=== PATIENT | male | born 1960 | race Caucasian/White ===

== ENCOUNTER 2017-06-04 00:23 | Emergency (ER) | payer MEDICARE ==
[2017-06-04 01:44] LABS: APPEARANCE,URINE CLEAR; BILIRUBIN,URINE NEGATIVE (NEGATIVE); GLUCOSE, URINE NEGATIVE (NEGATIVE); KETONES,URINE NEGATIVE (NEGATIVE); LEUKOCYTE ESTERASE,URINE NEGATIVE (NEGATIVE); NITRITE,URINE NEGATIVE (NEGATIVE); PROTEIN,URINE NEGATIVE (NEGATIVE); URINE SPECIFIC GRAVITY 1.009; UROBILINOGEN,URINE NEGATIVE mg/dL (<2.0)
[2017-06-04 01:45] LABS: ABSOLUTE BASOPHILS # (AUTO) 0.1 10^3/uL (0.0-0.2); ABSOLUTE EOSINOPHILS # (AUTO) 0.2 10^3/uL (0.0-0.6); ABSOLUTE LYMPHOCYTES (AUTO) 1.6 10^3/uL (0.5-4.7); ABSOLUTE MONOCYTES (AUTO) 0.7 10^3/uL (0.1-1.4); ABSOLUTE NEUT (AUTO) 9.6 10^3/uL (1.7-8.2); BASOPHILS % (AUTO) 0.5 % (0-2); EOSINOPHILS % (AUTO) 1.6 % (0-6); HEMATOCRIT 38.8 % (37.9-51.0); HEMOGLOBIN 13.7 g/dL (13.5-17.0); HGB HCT DIFFERENCE 2.3; LYMPHOCYTES % (AUTO) 13.5 % (13-45); MEAN CORPUSCULAR HEMOGLOBIN 32.1 pg (27.0-33.4); MEAN CORPUSCULAR HGB CONC 35.3 g/dL (32.0-36.0); MEAN CORPUSCULAR VOLUME 91 fl (80-97); MONOCYTES % (AUTO) 5.5 % (3-13); RED BLOOD COUNT 4.27 10^6/uL (4.35-5.55); RED CELL DISTRIBUTION WIDTH 14.2 % (11.5-14.0); SEGMENTED NEUTROPHILS % (AUTO) 78.9 % (42-78); WHITE BLOOD COUNT 12.1 10^3/uL (4.0-10.5)
[2017-06-04] MEDS ORDERED: LORAZEPAM 1 MG TABLET PO ONE (01:50)
--- NOTE | 2017-06-04 01:50 | ER Document Report ---
ED Psych Disorder / Suicide - General Mode of Arrival: Ambulatory Information source: Patient TRAVEL OUTSIDE OF THE [place] IN LAST 30 DAYS: No <VERONICA XIONG - Last Filed: 06/04/17 03:34> <NATE PAEZ - Last Filed: 06/04/17 05:47> - General Chief Complaint: Psych Problem Stated Complaint: CHEST PAIN Time Seen by Provider: 06/04/17 01:24 Notes: Patient is a 57 year old male that presents today complaining of "a heart attack two months ago with a x3-4 day coma". Patient then mentions that he needs "someone who believes in God". Patient keeps reporting that he "needs to speak with a child adolescent care". History is limited. (VERONICA XIONG) - Related Data Allergies/Adverse Reactions: No Known Allergies Allergy (Verified 06/04/17 05:32) Past Medical History - General Information source: [facility] Records - Social History Smoking Status: Unknown if Ever Smoked Cigarette use (# per day): No Frequency of alcohol use: None Drug Abuse: None Lives with: Family Family History: Reviewed & Not Pertinent Patient has suicidal ideation: No Patient has homicidal ideation: No - Past Medical History Cardiac Medical History: Reports: Hx Heart Attack Past Surgical History: Reports: Hx Cardiac Surgery <VERONICA XIONG - Last Filed: 06/04/17 03:34> Review of Systems - Review of Systems -: Yes ROS unobtainable due to patient's medical condition <VERONICA XIONG - Last Filed: 06/04/17 03:34> Physical Exam - Vital signs Interpretation: Normal - General General appearance: Appears well, Alert - HEENT Head: Normocephalic, Atraumatic Eyes: Normal Pupils: PERRL - Respiratory Respiratory status: No respiratory distress Chest status: Nontender Breath sounds: Normal Chest palpation: Normal - Cardiovascular Rhythm: Regular Heart sounds: Normal auscultation Murmur: No - Abdominal Inspection: Normal Distension: No distension Bowel sounds: Normal Tenderness: Nontender Organomegaly: No organomegaly - Back Back: Normal, Nontender - Extremities General upper extremity: Normal inspection, Nontender, Normal color, Normal ROM , Normal temperature General lower extremity: Normal inspection, Nontender, Normal color, Normal ROM , Normal temperature, Normal weight bearing. No: Tahir's sign - Neurological Neuro grossly intact: Yes Cognition: Normal Orientation: AAOx4 [place] Coma Scale Eye Opening: Spontaneous [place] Coma Scale Verbal: Oriented Edis Coma Scale Motor: Obeys Commands Edis Coma Scale Total: 15 Speech: Normal Motor strength normal: LUE, RUE, LLE, RLE Sensory: Normal - Psychological Associated symptoms: Paranoid, Episcopal preoccupation, Restlessness - Skin Skin Temperature: Warm Skin Moisture: Dry Skin Color: Normal <NATE PAEZ - Last Filed: 06/04/17 05:47> - Vital signs Vitals: Temp Pulse Resp BP Pulse Ox 98.4 F 102 H 16 152/91 H 96 06/04/17 00:35 06/04/17 00:35 06/04/17 00:35 06/04/17 00:35 06/04/17 00:35 Course - Laboratory Result Diagrams: 06/04/17 01:26 06/04/17 01:26 <VERONICA XIONG - Last Filed: 06/04/17 03:34> - Laboratory Result Diagrams: 06/04/17 01:26 06/04/17 01:26 <NATE PAEZ - Last Filed: 06/04/17 05:47> - Re-evaluation Re-evalutation: 06/04/17 05:45 Patient is a 57-year-old male who was causing is seen in the waiting room complaining about pain. Patient states that he has not had any pain except chronically in his right arm. No chest pain. Patient informs me that he wants to show me his website about God. Patient states that he needs to talk to someone about God. Otherwise he is medically stable. Patient will be held for mental health evaluation. I am not sure if this is his baseline as there are no old medical records on here. Troponin is negative 2. Patient has a history of renal insufficiency. (NATE PAEZ) - Vital Signs Vital signs: Temp Pulse Resp BP Pulse Ox 98.4 F 102 H 16 152/91 H 99 06/04/17 00:35 06/04/17 00:35 06/04/17 02:18 06/04/17 00:35 06/04/17 03:00 - Laboratory Laboratory results interpreted by me: 06/04/17 06/04/17 01:26 01:26 WBC 12.1 H RBC 4.27 L RDW 14.2 H Seg Neutrophils % 78.9 H Absolute Neutrophils 9.6 H Potassium 3.5 L BUN 47 H Creatinine 2.03 H Est GFR ( Amer) 41 L Est GFR (Non-Af Amer) 34 L Glucose 167 H AST 15 L Creatine Kinase 52 L Discharge <VERONICA XIONG - Last Filed: 06/04/17 03:34> <NATE PAEZ - Last Filed: 06/04/17 05:47> - Discharge Clinical Impression: Episcopal preoccupation, Arm pain, right Chronic renal insufficiency Qualifiers: Chronic kidney disease stage: unspecified stage Qualified Code(s): N18.9 - Chronic kidney disease, unspecified Condition: Stable Disposition: OTHER Scribe Attestation: 06/04/17 05:47 I personally performed the services described in the documentation, reviewed and edited the documentation which was dictated to the scribe in my presence, and it accurately records my words and actions. (NATE PAEZ) Scribe Documentation - Scribe Written by Scribe:: Gail Mcnamara, 06/04/2017 [id number] acting as scribe for :: Tom <VERONICA XIONG - Last Filed: 06/04/17 03:34>
[2017-06-04 01:56] LABS: ALANINE AMINOTRANSFERASE 35 U/L (21-72); ALBUMIN 4.6 g/dL (3.5-5.0); ALKALINE PHOSPHATASE 69 U/L (38-126); ASPARTATE AMINO TRANSFERASE 15 U/L (17-59); BILIRUBIN,DIRECT 0.4 mg/dL (0.0-0.4); BILIRUBIN,TOTAL 0.6 mg/dL (0.2-1.3); BLOOD UREA NITROGEN 47 mg/dL (7-20); CARBON DIOXIDE 22 mmol/L (22-30); CREATINE KINASE 52 U/L (55-170); CREATININE RESULT 2.03 mg/dL (0.52-1.25); GLUCOSE 167 mg/dL (75-110); POTASSIUM 3.5 mmol/L (3.6-5.0); SODIUM 140.8 mmol/L (137-145); TOTAL PROTEIN 7.1 g/dL (6.3-8.2)
[2017-06-04 01:57] LABS: ANION GAP 17 (5-19); CHLORIDE 102 mmol/L (98-107)
[2017-06-04 02:02] LABS: URINE BARBITURATES SCREEN NEGATIVE; URINE METHADONE SCREEN NEGATIVE; URINE OPIATES LOW NEGATIVE; URINE PHENCYCLIDINE SCREEN NEGATIVE
[2017-06-04 02:10] LABS: CREATINE KINASE MB 0.98 ng/mL (<4.55)
[2017-06-04 02:23] LABS: TROPONIN I 0.044 ng/mL
[2017-06-04] MEDS ORDERED: NICOTINE 21 MG/24 HR PATCH.TD24 TD ONE (03:11)
--- NOTE | 2017-06-04 03:18 | RADIOLOGY REPORT (SQ) ---
EXAM DESCRIPTION: CHEST SINGLE VIEW COMPLETED DATE/TIME: 06/04/2017 3:02 am REASON FOR STUDY: er 18 c/p COMPARISON: None. EXAM PARAMETERS: NUMBER OF VIEWS: One view. TECHNIQUE: Single frontal radiographic view of the chest acquired. RADIATION DOSE: NA LIMITATIONS: None. FINDINGS: LUNGS AND PLEURA: Small left lower lobar opacity -effusion. MEDIASTINUM AND HILAR STRUCTURES: No masses. Contour normal. HEART AND VASCULAR STRUCTURES: Heart normal in size. Normal vasculature. BONES: No acute findings. HARDWARE: Sternotomy. OTHER: No other significant finding. IMPRESSION: Small left lower lobar opacity -effusion. Differential diagnosis includes a left lower lobar pneumonia. TECHNICAL DOCUMENTATION: JOB ID: [id number] [employer]- All Rights Reserved
[2017-06-04] MEDS ORDERED: NORMAL SALINE 1000 ML 1,000 ML IV ONE (03:34)
[2017-06-04] MEDS ORDERED: ACETAMINOPHEN 325 MG TABLET ONE (03:58)
[2017-06-04] MEDS ORDERED: ACETAMINOPHEN 325 MG TABLET PO ONE (04:08)
--- NOTE | 2017-06-04 07:59 | EKG REPORT ---
SEVERITY:- ABNORMAL ECG - SINUS RHYTHM VENTRICULAR PREMATURE COMPLEX PROBABLE LEFT ATRIAL ABNORMALITY INFERIOR INFARCT, AGE INDETERMINATE LATERAL LEADS ARE ALSO INVOLVED : Confirmed by: Rolo Epstein MD 04-Jun-2017 07:58:30
--- NOTE | 2017-06-04 10:08 | ER Document Report ---
Doctor's Note Notes: 06/04/17 10:06 This is a 57-year-old male with some bizarre behavior. Patient has had 3 sets of cardiac labs which were unremarkable. States that he is here to do the [employer] work. 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 Comes from [facility] in the [facility]. States that he has had open heart surgery at [facility] [place]. Denies having any thoughts of harming himself. States that he is just here to spread God's word which is going to need to be accomplished through the locking on of his website at [employer]. Obviously patient having some long- standing mental health issues. Will need to have mental health evaluate and see patient. We will continue to place on legal hold as uncertain whether patient is safe to be by himself. Apparently he can drive and drove himself here but judging by his insight and judgment the decision to let him go right now would be questionable.
[2017-06-04] MEDS ORDERED: BENZTROPINE MESYLATE 1 MG TABLET PO SCH (11:30)
[2017-06-04] MEDS: CLONIDINE HCL 0.1 MG TABLET PO SCH ×2 (12:32→17:49)
[2017-06-04] MEDS: DIVALPROEX SODIUM 250 MG TABLET.DR PO SCH ×2 (12:36→17:48)
[2017-06-04] MEDS: OLANZAPINE 5 MG TABLET PO SCH ×2 (12:36→17:53)
[2017-06-04] MEDS: CHLORPROMAZINE HCL 50 MG TABLET PO PRN (13:56)
[2017-06-05] MEDS: CHLORPROMAZINE HCL 50 MG TABLET PO PRN (04:15)
[2017-06-05] MEDS ORDERED: NICOTINE 21 MG/24 HR PATCH.TD24 TD ONE (04:34)
[2017-06-05] MEDS ORDERED: BENZTROPINE MESYLATE 1 MG TABLET PO ONE ×2 (10:15→11:30)
[2017-06-05] MEDS ORDERED: OLANZAPINE 5 MG TABLET PO ONE ×2 (10:30→11:30)
--- NOTE | 2017-06-05 10:51 | ER Document Report ---
Doctor's Note Notes: 06/05/17 10:48 Rounds: Chart reviewed and patient reviewed. Patient seems to be much better than what was described on his admission yesterday. No yazdanism preferences. Says he would like to be discharged and return home somewhere else in [place]. He had some chest pains, but has been ruled out with 3 negative troponins. Patient says he had a heart attack and a cardiac arrest and was on life support couple of months ago. He experienced some renal damage and that is consistent with his creatinine of 2.03 on admission labs here. Patient had an incidental chest x-ray done here showing a suitable effusion or infiltrate in the left lower lobe. That was on a single view and I am ordering a PA and lateral chest x-ray. It looks rather benign to me on the patient's one single AP film. Vital signs are all essentially normal. Patient has been started on Zyprexa, Depakote, and clonidine. Patient appears to be medically stable for transfer or discharge. Jessica Fortune MD 06/05/17 12:59 Repeat chest x-ray with a lateral view and good inspiration shows no abnormality on the chest x-ray, per radiology.
[2017-06-05] MEDS ORDERED: DIVALPROEX SODIUM 250 MG TABLET.DR PO ONE (11:00)
[2017-06-05] MEDS ORDERED: CLONIDINE HCL 0.1 MG TABLET PO ONE (11:15)
--- NOTE | 2017-06-05 11:45 | RADIOLOGY REPORT (SQ) ---
EXAM DESCRIPTION: CHEST PA/LAT COMPLETED DATE/TIME: 06/05/2017 11:12 am REASON FOR STUDY: ? LL effusion, infiltrate,? COMPARISON: 06/04/2017 EXAM PARAMETERS: NUMBER OF VIEWS: two views TECHNIQUE: Digital Frontal and Lateral radiographic views of the chest acquired. RADIATION DOSE: NA LIMITATIONS: none FINDINGS: LUNGS AND PLEURA: No focal infiltrates. Probable epicardial fat pad along the left heart border. There is a small bulla or bleb in the right upper lobe laterally, unchanged. No acute infiltrates. No pleural effusion. No pneumothorax. MEDIASTINUM AND HILAR STRUCTURES: No masses or contour abnormalities. HEART AND VASCULAR STRUCTURES: No cardiomegaly. Old sternotomy and CABG. BONES: No acute findings. HARDWARE: None in the chest. OTHER: No other significant finding. IMPRESSION: NO SIGNIFICANT RADIOGRAPHIC FINDING IN THE CHEST. TECHNICAL DOCUMENTATION: JOB ID: [id number] [employer]- All Rights Reserved
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
[2017-06-05] MEDS ORDERED: CHLORPROMAZINE HCL 50 MG TABLET PO PRN (12:00)
[2017-06-05 13:29] VITALS: BP 130/82
[2017-06-05] MEDS ORDERED: OLANZAPINE 5 MG TABLET PO SCH (22:00)
[2017-06-05] MEDS ORDERED: DIVALPROEX SODIUM 250 MG TABLET.DR PO SCH (22:00)
[2017-06-05] MEDS ORDERED: CLONIDINE HCL 0.1 MG TABLET PO SCH (22:00)
[2017-06-06] MEDS ORDERED: BENZTROPINE MESYLATE 1 MG TABLET PO SCH (10:00)
== END 2017-06-05 13:45 | disposition other institution (70) ==
LOC: ER 00:23
DX: R46.89 Other symptoms and signs involving appearance and behavior (principal); M79.601 Pain in right arm; R45.1 Restlessness and agitation; N18.9 Chronic kidney disease, unspecified; R07.9 Chest pain, unspecified; I25.2 Old myocardial infarction; Z86.74 Personal history of sudden cardiac arrest; Z98.890 Other specified postprocedural states
CPT/HCPCS: 93005; 99285; 96360; 36415; 82553; 82550; 85025; 80053; 81001; 84484; 80307; 71020; 71010; 93010; A9270 ×12; J7030; J3490